=== PATIENT | male | born 1975 ===

== ENCOUNTER 2018-09-13 06:00 | Day surgery (SDC) | payer OTHER | END 2018-09-13 10:40 | disposition home or self-care (01) | LOC: AMB-ENDOS 06:00 | DX: D12.8 Benign neoplasm of rectum (principal); K64.8 Other hemorrhoids; Z12.11 Encounter for screening for malignant neoplasm of colon ==

== ENCOUNTER 2021-07-28 08:00 | Outpatient (CLI) | payer OTHER | END 2021-07-28 08:30 | disposition home or self-care (01) | LOC: PPH VACUNA 08:00 | PROVIDERS: ATTEND Emergency Medicine Pediatric Emergency Medicine | DX: Z23 Encounter for immunization (principal) ==